=== PATIENT | male | born 1990 | race Caucasian/White ===

== ENCOUNTER 2021-03-14 19:54 | Emergency (ER) | payer MEDICAID ==
[~2021-03-14] VITALS: Ht 170.2 cm; Wt 77.3 kg
[2021-03-14 20:00] VITALS: BP 118/64
[2021-03-14] MEDS ORDERED: CLOTRIMAZOLE 1% 15 GM CREAM TP ONE (22:00)
[2021-03-14] MEDS ORDERED: IBUPROFEN 800 MG TABLET PO ONE (22:00)
[2021-03-14] MEDS ORDERED: PERTUSS(ACELL),DIPH,TET VAC/PF 0.5 ML SYRINGE IM. ONE (22:00)
[2021-03-14 22:13] LABS: COVID AG,FIA SOURCE NASOPHARYNGEAL
== END 2021-03-14 23:10 | disposition home or self-care (01) ==
LOC: EMS 20:02
DX: S90.112A Contusion of left great toe without damage to nail, initial encounter (principal); J03.90 Acute tonsillitis, unspecified; B35.3 Tinea pedis; X58.XXXA Exposure to other specified factors, initial encounter; Y93.89 Activity, other specified; Y92.89 Other specified places as the place of occurrence of the external cause; Y99.8 Other external cause status; Z20.822 Contact with and (suspected) exposure to COVID-19
CPT/HCPCS: 87430; 90471; 90715; 99284